=== PATIENT | female | born 1990 | race Caucasian/White ===

== ENCOUNTER 2017-03-23 19:04 | Emergency (ER) | payer OTHER ==
[2017-03-23 19:21] VITALS: BP 137/83
[2017-03-23] MEDS ORDERED: Amoxicillin/Clavulanate TAB* 875 MG PO ONE (20:17)
--- NOTE | 2017-03-23 20:21 | ED ---
Bite Injury/Animal - HPI Summary HPI Summary: 27F presents with bite to right hand and arm. She states that her landlords dog bite her. She states she was knocking on the neighbors door and the dog ran out and bite her on her hand and arm. There are two small lacerations on her right hand. There is minimal bleeding present. She does not know when last tetanus was. She has full ROM of her hand. She has bruising around the bites. She is right handed. She works as a internal control specialist. - History of Current Complaint Chief Complaint: EDAnimalBite Stated Complaint: DOG BITE Time Seen by Provider: 03/23/17 19:58 Pain Intensity: 5 - Allergies/Home Medications Allergies/Adverse Reactions: Allergies Allergy/AdvReac Type Severity Reaction Status Date / Time No Known Allergies Allergy Verified 04/29/15 09:35 PMH/Surg Hx/FS Hx/Imm Hx Endocrine/Hematology History: Denies: Hx Anemia Cardiovascular History: Denies: Hx Aneurysm, Hx Angina, Hx Angioplasty, Hx Auto Implanted Cardiovert Defib, Hx Cardiac Arrest, Hx Cardiomegaly, Hx Congenital Heart Disease, Hx Congestive Heart Failure, Hx Coronary Artery Disease, Hx Deep Vein Thrombosis, Hx Embolism, Hx Hypercholesterolemia, Hx Hypotension, Hx Hypertension Respiratory History: Denies: Hx Asthma Musculoskeletal History: Denies: Hx Arthritis, Hx Back Problems, Hx Bursitis, Hx Congenital Bone Abnormalities, Hx Fibromyalgia, Hx Gout, Hx Orthopedic Injury, Hx Osteoporosis, Hx Scoliosis, Hx Tendonitis, Other Musculoskeletal History Sensory History: Reports: Hx Contacts or Glasses Denies: Hx Eye Injury, Hx Eye Prosthesis, Hx Glaucoma, Hx Legally Blind, Hx Macular Degeneration, Hx Vision Problem, Hx Deafness, Hx Hearing Aid, Hx Hearing Problem, Other Sensory Impairments Opthamlomology History: Reports: Hx Contacts or Glasses Denies: Hx Eye Injury, Hx Eye Prosthesis, Hx Glaucoma, Hx Legally Blind, Hx Macular Degeneration, Hx Vision Problem, Other Sensory Impairments Neurological History: Denies: Hx Dementia, Hx Developmental Delay, Hx Headaches, Hx Migraine, Hx Nerve Disease, Hx Seizures, Hx Spinal Cord Injury, Hx Transient Ischemic Attacks (TIA), Other Neuro Impairments/Disorders Psychiatric History: Denies: Other Psychiatric Issues/Disorders - Surgical History Surgery Procedure, Year, and Place: ORIF R lega and R wrist Infectious Disease History: No Infectious Disease History: Denies: Hx Clostridium Difficile, Hx Hepatitis, Hx Human Immunodeficiency Virus (HIV), Hx of Known/Suspected MRSA, Hx Shingles, Hx Tuberculosis, Hx Known/ Suspected VRSA, History Other Infectious Disease, Traveled Outside the [place] in Last 30 Days - Family History Known Family History: Negative: Diabetes - Social History Alcohol Use: None Substance Use Type: Reports: None Smoking Status (MU): Light Every Day Tobacco Smoker Type: Cigarettes Amount Used/How Often: 4 cigarettes per day Length of Time of Smoking/Using Tobacco: 7 years Have You Smoked in the Last Year: Yes Review of Systems Negative: Fever Negative: Chest Pain Negative: Shortness Of Breath Positive: Other - bite right hand and upper arm All Other Systems Reviewed And Are Negative: Yes Physical Exam Triage Information Reviewed: Yes Vital Signs On Initial Exam: Initial Vitals Temp Pulse Resp BP Pulse Ox 98.3 F 77 14 137/83 100 03/23/17 19:19 03/23/17 19:19 03/23/17 19:19 03/23/17 19:19 03/23/17 19:19 Vital Signs Reviewed: Yes Appearance: Positive: Well-Appearing Skin: Positive: Warm, Dry, Other - 1/2cm and 1cm laceration to right palm, superficial bite on right arm, ecchymosis under both bites Head/Face: Positive: Normal Head/Face Inspection Eyes: Positive: Normal, Conjunctiva Clear Respiratory/Lung Sounds: Positive: Clear to Auscultation, Breath Sounds Present Cardiovascular: Positive: Normal, RRR Musculoskeletal: Positive: Strength/ROM Intact - right hand, Other - good pulses , capillary refill<2 secs, sensation grossly intact Neurological: Positive: Normal Diagnostics - Vital Signs Vital Signs Temp Pulse Resp BP Pulse Ox 03/23/17 19:19 98.3 F 77 14 137/83 100 - Laboratory Lab Statement: Any lab studies that have been ordered have been reviewed, and results considered in the medical decision making process. - Radiology hand Xray Interpretation: No Acute Changes Radiology Interpretation Completed By: Radiologist Bite Injury Course/Dx - Course Course Of Treatment: 27F presents with bite to right hand and arm. She states that her landlords dog bite her. She states she was knocking on the neighbors door and the dog ran out and bite her on her hand and arm. There are two small lacerations on her right hand. There is minimal bleeding present. She does not know when last tetanus was. She has full ROM of her hand. She has bruising around the bites. on exam has 1/2cm and 1cm lacerations to right palm and superficial bite that did not puncture skin on right arm. cleaned area and placed steristrip across area as do not want to close do to infection. wrapped with hoa. xray normal. gave tetanus and augmentin. told of what signs of infection to watch for. patient understand and agrees with plan. - Diagnoses Differential Diagnosis/HQI/PQRI: Positive: Crush Injury, Laceration, Puncture Provider Diagnosis: Dog bite Discharge - Discharge Plan Condition: Good Disposition: HOME Prescriptions: Amoxicillin/Clavulanate TAB* [Augmentin TAB 875*] 875 mg PO BID #13 tab Patient Education Materials: Animal Bite (ED) Forms: *Work Release Referrals: Vincent Fontenot MD [Primary Care Provider] - Additional Instructions: Take antibiotic twice a day for 7 days Clean area at least once a day apply neosporin to area Can reapply steristrips as long as no infection present Return to ED if develop any spreading redness, fever, pus or any new or worsening symptoms
[2017-03-23] MEDS ORDERED: Tetan/Diph/Pertus SYR(Tdap)* 0.5 ML SYR(BOOSTRIX) use SYR IM ONE (21:07)
--- NOTE | 2017-03-23 21:25 | RAD ---
INDICATION: Dog bite to palmar side of RIGHT hand. Pain and edema. COMPARISON: No relevant prior exams available on the [facility] for comparison. TECHNIQUE: AP, lateral, and oblique views RIGHT hand. REPORT: Soft tissue swelling along the palmar aspect of the hand. No subcutaneous emphysema or conspicuous foreign body. Negative for fracture or malalignment. Suggestion of tracks from previous internal fixation hardware at the distal radius. IMPRESSION: Soft tissue swelling without additional acute abnormality.
== END 2017-03-23 22:15 | disposition home or self-care (01) ==
LOC: ED 19:04
DX: S61.451A Open bite of right hand, initial encounter (principal); S41.151A Open bite of right upper arm, initial encounter; W54.0XXA Bitten by dog, initial encounter; Y92.009 Unspecified place in unspecified non-institutional (private) residence as the place of occurrence of the external cause; Z23 Encounter for immunization; F17.210 Nicotine dependence, cigarettes, uncomplicated
CPT/HCPCS: 90471; 90715; 99282; A9270-GY